=== PATIENT | female | born 1980 | race Caucasian/White ===

== ENCOUNTER → 2016-08-10 | Outpatient (CLI) | payer OTHER ==
[~2016-08-10] MED LIST: BUSP30TA2 PO; ESCI1TAB10 PO; FEXO1TAB58 PO; LORA-741 PO
--- NOTE | 2016-08-10 11:32 | DIAGNOSTIC IMAGING REPORT ---
PELVIC ULTRASOUND CLINICAL HISTORY: Excessive/frequent menses with regular cycle. Cramping. COMPARISON STUDY: No previous studies for comparison. TECHNIQUE: Transabdominal and transvaginal sonography of the pelvis was performed. FINDINGS: The uterus measures 8.6 x 4.9 x 4.9 cm. The endometrium is normal, measuring 9 mm in thickness. No uterine lesions are identified by sonography. The right ovary measures 3.4 x 1.9 x 2.9 cm and contains a 3 cm cyst. The left ovary measures 2.6 x 1.6 x 2.4 cm. A 1.8 cm hypoechoic left ovarian lesion could reflect a corpus luteal cyst. There is no free fluid. IMPRESSION: 1. Normal sonographic appearance of the uterus. Endometrial thickness of 9 mm. 2. 3 cm right ovarian cyst. 3. 1.8 cm left ovarian lesion which could reflect a corpus luteal cyst. Electronically signed by: Erasto Rollins M.D. 08/10/2016 11:31 AM Dictated Date/Time: 08/10/2016 11:28 AM
== END | disposition home or self-care (01) ==
LOC: C.ULTR 09:33
PROVIDERS: ATTEND Obstetrics & Gynecology
DX: N92.0 Excessive and frequent menstruation with regular cycle (principal); N83.201 Unspecified ovarian cyst, right side

== ENCOUNTER → 2017-12-03 | Outpatient (CLI) | payer OTHER ==
--- NOTE | 2017-12-03 08:46 | DIAGNOSTIC IMAGING REPORT ---
ABDOMINAL ULTRASOUND COMPLETE HISTORY: EPIGASTRIC PAIN,NAUSEA. COMPARISON: None. FINDINGS: Pancreas: The pancreatic tail is obscured by overlying bowel gas. The remaining portions of the pancreas are within normal limits. Liver: Mildly enlarged measuring 19.7 cm in length. No hepatic masses. Gallbladder: Completely filled with multiple stones. No gallbladder wall thickening. CBD: 4 mm. Kidneys: No hydronephrosis. Spleen: Normal in size. Aorta: Normal in caliber. IVC: Patent. IMPRESSION: 1. Cholelithiasis. No gallbladder wall thickening. 2. Mild hepatomegaly. Electronically signed by: Salinas Vigil M.D. 12/03/2017 8:44 AM Dictated Date/Time: 12/03/2017 8:39 AM
== END | disposition home or self-care (01) ==
LOC: C.ULTR 08:06
PROVIDERS: ATTEND Physician Assistant
DX: K80.20 Calculus of gallbladder without cholecystitis without obstruction (principal); R16.0 Hepatomegaly, not elsewhere classified

== ENCOUNTER 2018-01-02 08:20 | Day surgery (SDC) | payer OTHER ==
[2017-12-18 10:10] VITALS: BMI 38.0
[~2018-01-02] VITALS: Ht 147.3 cm; Wt 84.0 kg
[~2018-01-02 08:20] MED LIST changes: +ATROPINE SULFATE 0.1 MG/ML 5ML SYR IV PRN; +BREX1TAB3 PO; -BUSP30TA2 PO; +CEFAZOLIN 2000MG IV PUSH 15 ML IV SCH; +DESV100T PO; -ESCI1TAB10 PO; +EpHEDrine SULFATE INJ 50 MG/ML AMP IV PRN; +HYDR-3126 PO; +HYDROmorphone INJ 1 MG/ML SYR IV PRN; +LACTATED RINGER'S 1000ML 1,000 ML IV SCH; -LORA-741 PO; +ONDANSETRON INJ 2 MG/ML 2 ML VIAL IV PRN; +PHENYLEPHRINE 100MCG/ML 5ML SYR IV PRN
[2018-01-02] MEDS ORDERED: PROPOFOL IV EMULSION 10 MG/ML 20 ML VIAL ONE (08:22)
[2018-01-02] MEDS ORDERED: LIDOCAINE HCL 2% 2 ML VIAL (20MG/ML) ONE (08:22)
[2018-01-02] MEDS ORDERED: ROCURONIUM BROMID 50MG/5ML SYR ONE (08:22)
[2018-01-02] MEDS ORDERED: ONDANSETRON INJ 2 MG/ML 2 ML VIAL ONE (08:23)
[2018-01-02] MEDS ORDERED: MIDAZOLAM HCL 1 MG/ML 2ML VIAL ONE (08:23)
[2018-01-02] MEDS ORDERED: DEXAMETHASONE SOD INJ 4 MG/ML VIAL ONE ×2 (08:23→09:38)
[2018-01-02] MEDS ORDERED: ROCURONIUM BROMIDE 10 MG/ML 5 ML VIAL ONE (08:23)
[2018-01-02] MEDS ORDERED: FENTANYL CITRATE INJ 50 MCG/1 ML 2 ML VIAL ONE ×2 (08:24→09:20)
[2018-01-02] MEDS ORDERED: SCOPOLAMINE 1.5 MG TDSY TD ONE (08:39)
[2018-01-02] MEDS ORDERED: NURSING VERBAL MED ORDER ONE (08:40)
[2018-01-02 08:47] VITALS: BP 129/48; PULSE 74; TEMP 36.6; O2SAT 97; Ht 147.3 cm; Wt 84.0 kg
[2018-01-02] MEDS ORDERED: HYDR-5688 PO (08:48)
--- NOTE | 2018-01-02 08:49 | Discharge Instructions ---
Discharge Instructions Date of Service Jan 02, 2018. Admission Reason for Admission: Symptomatic Cholelithiasis Discharge Discharge Diagnosis / Problem: Symptomatic Cholelithiasis Discharge Goals Goal(s): Decrease discomfort, Improve function Activity Recommendations Activity Limitations: as noted below Lifting Limitations: no more than 10 pounds Exercise/Sports Limitations: until after follow-up appointment May Resume Sexual Activity: after follow-up appointment Shower/Bathe: tomorrow Driving or Machine Use: resume 1 day after discharge . Instructions / Follow-Up Instructions / Follow-Up You have surgical glue, Dermabond, over your incisions. You may shower tomorrow , but please do not soak or scrub your incisions. Please follow-up with Dr. Veliz in the General Surgery [facility] as planned in 2 weeks. Please call the clinic at [phone] with any questions or concerns. Current Hospital Diet Patient's current hospital diet: Discharge Diet Recommended Diet: Regular Diet Procedures Procedures Performed: Laparoscopic Cholecystectomy Pending Studies Studies pending at discharge: yes List of pending studies: Pathology report. Medical Emergencies . Who to Call and When: Medical Emergencies: If at any time you feel your situation is an emergency, please call 911 immediately. . Non-Emergent Contact Non-Emergency issues call your: Primary Care Provider, Surgeon Call Non-Emergent contact if: temperature is above 101.5, your pain is not controlled, wound has increased drainage, wound has increased redness . "Provider Documentation" section prepared by Stacey White. .
[2018-01-02] MEDS ORDERED: BUPIVACAINE/EPINEPHRINE 0.5% MPF 1:200,000 30 ML VIAL ONE (08:52)
--- NOTE | 2018-01-02 09:00 | History & Physical Bridge Note ---
H&P Re-Evaluation Bridge Note: I have examined the patient, reviewed the History & Physical and in the interval since the performance of the History & Physical I have noted the following changes of clinical significance: No changes noted
[2018-01-02] MEDS ORDERED: NEOSTIGMINE METHYLSULFATE 5 MG/5 ML SYR ONE (09:28)
[2018-01-02] MEDS ORDERED: GLYCOPYRROLATE INJ 0.2 MG/ML VIAL ONE (09:29)
[2018-01-02] MEDS ORDERED: HYDROmorphone INJ 2 MG/ML SYR/VIAL ONE (09:40)
--- NOTE | 2018-01-02 09:53 | [facility] Post Operative Brief Note ---
Immediate Operative Summary Operative Date Jan 02, 2018. Pre-Operative Diagnosis Cholelithiasis Post-Operative Diagnosis Cholelithiasis Procedure(s) Performed Laparoscopic Cholecystectomy Surgeon Air Crew Supervisor Surgeon(s) JOHN Oneil Estimated Blood Loss 10 cc Findings Consistent with Post-Op Diagnosis Specimens A. Gallbladder Anesthesia Type General Complication(s) none
--- NOTE | 2018-01-02 10:08 | [facility] Operative Report ---
Operative Report Operative Date Jan 02, 2018. Pre-Operative Diagnosis Cholelithiasis Post-Operative Diagnosis Cholelithiasis Procedure(s) Performed Laparoscopic Cholecystectomy Surgeon Court Specialist Surgeon(s) JOHN Oneil Estimated Blood Loss 10ml Specimens A. Gallbladder Anesthesia Type General Complication(s) none Description of Procedure After informed consent was obtained the patient was taken to the operating room and placed in the supine position. After successful intubation the abdomen was sterilely prepped and draped in usual fashion. A periumbilical incision was made with an 11 blade scalpel and carried down through the soft tissue using electrocautery. The anterior rectus fascia was opened using electrocautery and 2 #0 Vicryl stay sutures were placed. The peritoneum was elevated with hemostats and incised under direct vision using Metzenbaum scissors. A finger sweep was performed and a 12 mm Guzman trocar was placed. The abdomen was insufflated to 18 mmHg. The laparoscope was inserted and the abdomen was examined in 360. No gross abnormalities were identified. A subxiphoid 5 mm port and 2 right upper quadrant 5 mm ports were placed under direct vision. The patient was placed in a reverse Trendelenburg position and slightly airplaned to the left. The gallbladder was grasped and elevated superiorly and laterally. A [place] dissector was used to take down adhesions around the neck of the gallbladder. The cystic duct was identified and skeletonized. It was clipped twice proximally and once distally and transected using a laparoscopic scissor. In similar fashion the cystic artery was identified and skeletonized clipped and divided. The gallbladder was removed from the gallbladder fossa with electrocautery. It was placed into an Endo Catch bag. Thorough irrigation was performed. At the end of the procedure there was adequate hemostasis and no evidence of any bile leaks. A final look around the abdomen showed no other abnormalities. The gallbladder and trochars were all removed and the abdomen was desufflated. The fascia of the camera port was closed using 0 Vicryl in a [id number] fashion. All the wounds were irrigated and closed using 4-0 Monocryl. Marcaine was injected around them for postoperative analgesia and skin glue used as a dressing. The patient was awaken extubated and transferred to recovery in stable condition. My physician's assistant director of nursing was present throughout the entire case... helped with prepping the patient. With exposure for trocar placement, as well as retracted the gallbladder throughout the case and also assisted with wound closure and dressing placement. I attest to the content of the Intraoperative Record and any orders documented therein. Any exceptions are noted below.
[2018-01-02] MEDS ORDERED: SODIUM CHLORIDE 0.9% 1000ML 1,000 ML IV SCH (10:13)
[2018-01-02] MEDS ORDERED: HYDROCODONE/ACETAMIN 5/325MG TAB PO PRN ×2 (10:15)
[2018-01-02] MEDS ORDERED: ONDANSETRON INJ 2 MG/ML 2 ML VIAL IV PRN (10:15)
--- NOTE | 2018-01-02 10:54 | Anesthesiology Progress Note ---
Anesthesia Post Op Note Date & Time Jan 02, 2018 at 10:54 Vital Signs Pain Intensity: 3 Vital Signs Past 12 Hours Date Time Temp Pulse Resp B/P (MAP) Pulse Ox O2 Delivery O2 Flow Rate FiO2 01/02/18 10:50 36.3 61 16 166/97 100 Nasal Cannula 2 01/02/18 10:40 62 19 159/97 100 Nasal Cannula 2 01/02/18 10:30 86 20 156/88 100 Oxymask 10 01/02/18 10:20 82 14 136/82 100 Oxymask 10 01/02/18 10:14 36 93 20 146/83 97 Oxymask 10 01/02/18 08:47 36.6 74 16 129/48 (75) 97 Room Air Notes Mental Status: alert / awake / arousable, participated in evaluation Pt Amnestic to Procedure: Yes Nausea / Vomiting: adequately controlled Pain: adequately controlled Airway Patency, RR, SpO2: stable & adequate BP & HR: stable & adequate Hydration State: stable & adequate Anesthetic Complications: no major complications apparent
[2018-01-02 11:10] VITALS: BP 122/61; PULSE 91; TEMP 36.6; O2SAT 93
[2018-01-02 11:40] VITALS: BP 147/85; PULSE 82; TEMP 36.3; O2SAT 99
[2018-01-02 12:10] VITALS: BP 150/87; PULSE 71; TEMP 36.1; O2SAT 100
[2018-01-02] MEDS ORDERED: CHECK SCOPOLAMINE PATCH PLACEMENT SCH (16:00)
== END 2018-01-02 13:20 | disposition home or self-care (01) ==
LOC: C.ACU 08:20
PROVIDERS: ATTEND Surgery
DX: K80.10 Calculus of gallbladder with chronic cholecystitis without obstruction (principal); F17.200 Nicotine dependence, unspecified, uncomplicated; F32.9 Major depressive disorder, single episode, unspecified; F41.9 Anxiety disorder, unspecified; K21.9 Gastro-esophageal reflux disease without esophagitis; Z90.710 Acquired absence of both cervix and uterus; Z02.82 Encounter for adoption services; Z83.3 Family history of diabetes mellitus; Z79.899 Other long term (current) drug therapy